=== PATIENT | male | born 1985 | race Two or more races ===

== ENCOUNTER 2018-09-19 02:37 | Inpatient (IN) | payer BC, MEDICAID, OTHER ==
[~2018-09-19] VITALS: Ht 185.4 cm; Wt 68.9 kg
[2018-09-19 05:26] LABS: CHLORIDE 103 mEq/L (98-107)
[2018-09-19 05:49] LABS: HEMOGLOBIN. 15.8 g/dL (14.0-18.0); MEAN CORPUSCULAR HEMOGLOBIN 31.7 pg (28.0-32.0); MEAN CORPUSCULAR VOLUME 92.5 fL (80.0-94.0); MEAN PLATELET VOLUME 9.2 fl (7.4-10.4); PLATELET 253 x1000/uL (130-400); RED BLOOD CELL COUNT 4.97 mill/uL (4.7-6.1); RED CELL DISTRIBUTION WIDTH 13.8 % (11.6-14.6)
[2018-09-19] MEDS ORDERED: IOHEXOL-300 100 ML BOTTLE ONE (05:59)
[2018-09-19 06:04] LABS: CLARITY URINE CLEAR (CLEAR); COLOR URINE YELLOW (YELLOW); KETONES URINE 2+ (NEGATIVE); LEUKOCYTE ESTERASE URINE NEGATIVE (NEGATIVE); NITRITE URINE NEGATIVE (NEGATIVE); OCCULT BLOOD URINE NEGATIVE (NEGATIVE); PH URINE 6.5 (4.5-8.0); PROTEIN URINE NEGATIVE (NEGATIVE); SPECIFIC GRAVITY URINE 1.022 (1.005-1.030)
[2018-09-19] MEDS ORDERED: MORPHINE SULFATE 4 MG/ML CPJ (NOT FOR IM USE) IV ONE (06:30)
[2018-09-19] MEDS ORDERED: PIPERACILLIN/TAZOBACTAM 3.375GM/50ML PREMIX IV ONE (06:45)
[2018-09-19] MEDS ORDERED: SODIUM CHLORIDE 0.9% 1000ML BAG (SEPSIS BOLUS) IV ONE (06:45)
[2018-09-19] MEDS ORDERED: ONDANSETRON HCL 4MG/2ML INJ IV ONE (07:00)
[2018-09-19 07:29] LABS: PLATELET ESTIMATE NORMAL
[2018-09-19] MEDS ORDERED: DIPHENHYDRAMINE 50MG/ML VIAL IV PRN (09:00)
[2018-09-19] MEDS ORDERED: IPRATROPIUM/ALBUTEROL 0.5-3(2.5)MG/3ML NEB INH PRN (09:00)
[2018-09-19] MEDS ORDERED: ACETAMINOPHEN 650MG SUPP PR PRN (09:00)
[2018-09-19] MEDS ORDERED: LORAZEPAM 2MG/ML CPJ IV PRN (09:00)
[2018-09-19] MEDS ORDERED: KETOROLAC 15MG/ML VIAL IV PRN (09:00)
[2018-09-19] MEDS: DEXT 5%/0.45% NACL 1000ML 1,000 ML IV SCH ×2 (13:30→17:49)
[2018-09-19] MEDS: PANTOPRAZOLE SODIUM 40 MG/VIAL IV SCH ×3 (13:35→15:23)
[2018-09-19] MEDS ORDERED: PIPERACILLIN/TAZ 3.375G PREMIX 50 ML IV SCH (14:00)
[2018-09-19] MEDS ORDERED: POTASSIUM CHLORIDE 20MEQ TABLET SR PO NR (16:00)
[2018-09-19] MEDS ORDERED: METRONIDAZOLE 500 MG PREMIX 100 ML IV NR ×2 (16:15→20:00)
[2018-09-19 16:54] VITALS: BP 117/67
[2018-09-19 20:00] VITALS: BP 124/76
[2018-09-19] MEDS: PIPERACILLIN/TAZ 3.375G PREMIX 50 ML IV SCH (20:25)
[2018-09-19] MEDS: ONDANSETRON HCL 4MG/2ML INJ IV PRN (20:25)
[2018-09-20] VITALS: BP 122/80
[2018-09-20 04:00] VITALS: BP 120/76
[2018-09-20] MEDS: PIPERACILLIN/TAZ 3.375G PREMIX 50 ML IV SCH ×2 (05:08→11:57)
[2018-09-20] MEDS: ONDANSETRON HCL 4MG/2ML INJ IV PRN (05:19)
[2018-09-20] MEDS: DEXT 5%/0.45% NACL 1000ML 1,000 ML IV SCH ×2 (05:19→16:44)
[2018-09-20 08:00] VITALS: BP_SYST 107; BP_SYST 122; BP_DIAS 63
[2018-09-20 12:00] VITALS: BP 114/72
[2018-09-20 12:27] LABS: *BENZODIAZEPINES SCREEN URINE NEGATIVE (NEGATIVE); *COCAINE SCREEN URINE NEGATIVE (NEGATIVE); CANNABINOID URINE SCREEN NEGATIVE (NEGATIVE); PHENCYCLIDINE URINE SCREEN NEGATIVE (NEGATIVE)
[2018-09-20 12:28] LABS: METHADONE URINE SCREEN NEGATIVE (NEGATIVE); OPIATES URINE SCREEN NEGATIVE (NEGATIVE)
[2018-09-20 12:31] LABS: *AMPHETAMINES SCREEN URINE NEGATIVE (NEGATIVE)
[2018-09-20 12:34] LABS: *BARBITURATES SCREEN URINE NEGATIVE (NEGATIVE)
[2018-09-20 16:00] VITALS: BP 104/65
[2018-09-20 18:42] VITALS: BP 112/64
== END 2018-09-20 19:44 | disposition home or self-care (01) | DRG 391 ==
LOC: ER 02:37 → 6EST 06:50 → ENRESERV 10:11 → CANRESERV 10:11 → ENRESERV 16:16
PROVIDERS: ADMIT Internal Medicine; ATTEND Internal Medicine
DX: K52.9 Noninfective gastroenteritis and colitis, unspecified (principal); K85.90 Acute pancreatitis without necrosis or infection, unspecified; E87.6 Hypokalemia; R73.9 Hyperglycemia, unspecified; K21.9 Gastro-esophageal reflux disease without esophagitis; K44.9 Diaphragmatic hernia without obstruction or gangrene
CPT/HCPCS: 36415; 71045; 74177; 80305; 83036; 85651; 86140; 86256; 86671; 96374; 96375; 99285; C9113; J1885; J2270; J2405; J2543; J3490; Q9967